=== PATIENT | male | born 1970 | race Caucasian/White ===

== ENCOUNTER → 2020-01-17 | Outpatient (CLI) | payer OTHER ==
--- NOTE | 2020-01-17 12:41 | RAD ---
EXAM: Left hip, 2 views HISTORY: Pain. COMPARISON: None. FINDINGS: 2 views of the left hip are obtained. There is no fracture, dislocation or subluxation. The femoral head is normal in configuration. IMPRESSION: No acute osseous finding. Electronically signed by: Yudith Bolton MD (01/17/2020 12:38 PM) [id number]
== END ==
LOC: RAD 09:44
PROVIDERS: ATTEND Anesthesiology Pain Medicine
DX: M25.552 Pain in left hip (principal)
CPT/HCPCS: 73502